=== PATIENT | male | born 2000 | race Caucasian/White ===

== ENCOUNTER 2021-02-23 09:34 | Emergency (ER) | payer OTHER ==
[2021-02-23 09:44] VITALS: BP 125/80; PULSE 88; TEMP 97; BMI 21.6
== END 2021-02-23 11:49 | disposition home or self-care (01) ==
LOC: JER 09:34
DX: R10.2 Pelvic and perineal pain (principal); R10.12 Left upper quadrant pain; R10.32 Left lower quadrant pain
CPT/HCPCS: 76856-TC; 99283-25